=== PATIENT | female | born 1950 | race Two or more races ===

== ENCOUNTER 2019-11-26 20:10 | Inpatient (IN) | payer MEDICARE, MEDICAID ==
[~2019-11-26] VITALS: Ht 165.1 cm; Wt 48.8 kg
--- NOTE | 2019-11-26 20:10 | NUR ---
ED Nurse Note: Patient brought in by ambulance [id number] from [facility], per EMS right sided focal seizure main complaint, pt was given ativan PO at [facility]. Patient alert but nonverbal, follows commands. Patient has recent stroke and was admitted to [facility] discharged on 11/24/19. Patient placed on cardiac rehabilitation specialist. No acute distress noted during assessment.
[2019-11-26 20:12] VITALS: BP 135/77
--- NOTE | 2019-11-26 20:12 | NUR ---
ED Nurse Note: Patient has left upper arm PICC line
--- NOTE | 2019-11-26 20:20 | NUR ---
ED Nurse Note: Patient verbally communicating in turkmen, able to understand and follow mauritian commands.
--- NOTE | 2019-11-26 20:21 | NUR ---
ED Nurse Note: Patient taken to CT in stable condition.
--- NOTE | 2019-11-26 20:47 | Emergency Room Report ---
History of Present Illness General Chief Complaint: Seizure Source: Medical Record Present Illness HPI Patient presents from nursing facility with reports of right-sided focal seizure activity Patient had recent hospitalization at [facility] Patient herself has underlying dementia and is nonverbal Patient was being evaluated by physician at the nursing facility and was found to be having tremors possible seizure and 911 was contacted There was no reports of vomiting or diarrhea patient is at baseline mental status Allergies: Coded Allergies: No Known Allergies (Unverified , 11/26/19) COVID-19 Screening Contact w/high risk pt: No Recent Travel to affected area: No Experienced COVID-19 symptoms?: No Patient History Limited by: medical condition Past Medical History: see triage record Reviewed Nursing Documentation: PMH: Agreed; PSxH: Agreed Nursing Documentation-PMH Past Medical History Deferred: Pt Cognitively Impaired Hx Cardiac Problems: Yes - CHF Hx Hypertension: Yes Hx Pacemaker: No Hx Asthma: No Hx COPD: No Hx Diabetes: Yes Hx Cancer: No Hx Gastrointestinal Problems: No Hx Dialysis: No History Of Psychiatric Problem: No Hx Neurological Problems: No Hx Cerebrovascular Accident: Yes Hx Seizures: No Review of Systems All Other Systems: limited - Other than the ones mentioned in the history of present illness all others are reviewed however they do stay limited due to the patient's mental status Physical Exam Vital Signs Date Time Temp Pulse Resp B/P (MAP) Pulse Ox O2 Delivery O2 Flow Rate FiO2 11/26/19 19:58 106 22 169/102 (124) 95 Room Air 11/26/19 20:12 98.8 Sp02 EP Interpretation: reviewed, normal General Appearance: no apparent distress Head: normocephalic, atraumatic Eyes: bilateral eye PERRL, bilateral eye EOMI ENT: EOM grossly intact Neck: supple Respiratory: lungs clear, no respiratory distress, no retraction Cardiovascular #1: regular rate, rhythm Gastrointestinal: non tender, soft Musculoskeletal: other - Patient does have what appears to be tremulous activity to the right arm however soon after arrival it does appear to have stopped Neurologic: other - Responsive Skin: no rash Lymphatic: no adenopathy Procedures Critical Care Time Critical Care Time 50 minutes for multiple re-evaluations critical presentation concern for intracranial process not including any procedural time Medical Decision Making Diagnostic Impression: Primary Impression: Focal seizure Additional Impression: Bilateral pleural effusion ER Course Multiple differentials including but not limited to seizure disorder, neurological, neurosurgical entertained Patient appears to have resolved with her tremors in the emergency room did not require any further intervention CT head does not show any acute process And patient is admitted for further inpatient care Labs Test 11/26/19 20:50 11/27/19 06:10 11/28/19 05:50 White Blood Count 6.8 K/UL (4.8-10.8) 7.3 K/UL (4.8-10.8) Red Blood Count 4.15 M/UL (4.20-5.40) 4.20 M/UL (4.20-5.40) Hemoglobin 11.9 G/DL (12.0-16.0) 12.4 G/DL (12.0-16.0) Hematocrit 37.4 % (37.0-47.0) 36.3 % (37.0-47.0) Mean Corpuscular Volume 90 FL (80-99) 86 FL (80-99) Mean Corpuscular Hemoglobin 28.6 PG (27.0-31.0) 29.4 PG (27.0-31.0) Mean Corpuscular Hemoglobin Concent 31.7 G/DL (32.0-36.0) 34.1 G/DL (32.0-36.0) Red Cell Distribution Width 16.1 % (11.6-14.8) 14.5 % (11.6-14.8) Platelet Count 178 K/UL (150-450) 175 K/UL (150-450) Mean Platelet Volume 7.1 FL (6.5-10.1) 6.3 FL (6.5-10.1) Neutrophils (%) (Auto) 79.0 % (45.0-75.0) 61.7 % (45.0-75.0) Lymphocytes (%) (Auto) 10.8 % (20.0-45.0) 25.3 % (20.0-45.0) Monocytes (%) (Auto) 7.0 % (1.0-10.0) 10.9 % (1.0-10.0) Eosinophils (%) (Auto) 1.2 % (0.0-3.0) 0.9 % (0.0-3.0) Basophils (%) (Auto) 2.0 % (0.0-2.0) 1.2 % (0.0-2.0) Prothrombin Time 13.3 SEC (9.30-11.50) Prothromb Time International Ratio 1.3 (0.9-1.1) Activated Partial Thromboplast Time 25 SEC (23-33) Urine Color Yellow Urine Appearance Clear Urine pH 6.5 (4.5-8.0) Urine Specific Mcbrides 1.020 (1.005-1.035) Urine Protein 4+ (NEGATIVE) Urine Glucose (UA) 2+ (NEGATIVE) Urine Ketones 1+ (NEGATIVE) Urine Blood 5+ (NEGATIVE) Urine Nitrite Negative (NEGATIVE) Urine Bilirubin Negative (NEGATIVE) Urine Urobilinogen Normal MG/DL (0.0-1.0) Urine Leukocyte Esterase 1+ (NEGATIVE) Urine RBC 5-10 /HPF (0 - 2) Urine WBC 2-4 /HPF (0 - 2) Urine Squamous Epithelial Cells Few /LPF (NONE/OCC) Urine Bacteria Few /HPF (NONE) Sodium Level 136 MMOL/L (136-145) 139 MMOL/L (136-145) 139 MMOL/L (136-145) Potassium Level 4.9 MMOL/L (3.5-5.1) 4.5 MMOL/L (3.5-5.1) 4.1 MMOL/L (3.5-5.1) Chloride Level 101 MMOL/L (98-107) 104 MMOL/L (98-107) 103 MMOL/L (98-107) Carbon Dioxide Level 31 MMOL/L (21-32) 26 MMOL/L (21-32) 29 MMOL/L (21-32) Anion Gap 4 mmol/L (5-15) 9 mmol/L (5-15) 7 mmol/L (5-15) Blood Urea Nitrogen 22 mg/dL (7-18) 19 mg/dL (7-18) 14 mg/dL (7-18) Creatinine 1.0 MG/DL (0.55-1.30) 0.9 MG/DL (0.55-1.30) 0.9 MG/DL (0.55-1.30) Estimat Glomerular Filtration Rate 55.0 mL/min (>60) > 60 mL/min (>60) > 60 mL/min (>60) Glucose Level 221 MG/DL (74-106) 213 MG/DL (74-106) 206 MG/DL (74-106) Calcium Level 8.9 MG/DL (8.5-10.1) 8.8 MG/DL (8.5-10.1) 8.7 MG/DL (8.5-10.1) Total Bilirubin 0.3 MG/DL (0.2-1.0) 0.4 MG/DL (0.2-1.0) Aspartate Amino Transf (AST/SGOT) 37 U/L (15-37) 32 U/L (15-37) Alanine Aminotransferase (ALT/SGPT) 22 U/L (12-78) 21 U/L (12-78) Alkaline Phosphatase 163 U/L (46-116) 144 U/L (46-116) Total Creatine Kinase 49 U/L (26-308) Troponin I 0.013 ng/mL (0.000-0.056) Total Protein 6.3 G/DL (6.4-8.2) 6.0 G/DL (6.4-8.2) Albumin 2.3 G/DL (3.4-5.0) 2.1 G/DL (3.4-5.0) Globulin 4.0 g/dL 3.9 g/dL Albumin/Globulin Ratio 0.6 (1.0-2.7) 0.5 (1.0-2.7) Lipase 249 U/L (73-393) EKG Diagnostic Results Rate: normal Rhythm: other - atrial paced ST Segments: no acute changes Rhythm Strip Diag. Results EP Interpretation: yes Rate: 77 Rhythm: no PVC's, no ectopy, other - atrial paced Chest X-Ray Diagnostic Results Chest X-Ray Diagnostic Results : Chest X-Ray Ordered: Yes # of Views/Limited/Complete: 1 View Indication: Chest Pain EP Interpretation: Yes Interpretation: no pneumothorax, other - Bilateral large pleural effusions pulmonary congestion cardiomegaly Impression: Other - Large bilateral pleural effusions Electronically Signed by: Lucrecia Bobo DO CT/MRI/US Diagnostic Results CT/MRI/US Diagnostic Results : Impression CT headIMPRESSION: 1. No acute intracranial abnormality. 2. Left frontoparietal encephalomalacia. 3. Otherwise unremarkable study. Last Vital Signs Date Time Temp Pulse Resp B/P (MAP) Pulse Ox O2 Delivery O2 Flow Rate FiO2 3/28/20 20:13 96 24 Room Air 11/26/19 20:12 98.8 135/77 97 Status: improved Disposition: ADMITTED INPATIENT Condition: Serious Lucrecia Bobo DO Nov 26, 2019 20:47
--- NOTE | 2019-11-26 20:57 | Diagnostic Imaging Report ---
EXAM: CT Head Without Intravenous Contrast CLINICAL HISTORY: SZ TECHNIQUE: Axial computed tomography images of the head/brain without intravenous contrast. CTDI is 53 mGy and DLP is 992 mGy-cm. One or more of the following dose reduction techniques were used: automated exposure control, adjustment of the mA and/or kV according to patient size, use of iterative reconstruction technique. COMPARISON: No relevant prior studies available. FINDINGS: Brain: Left frontoparietal encephalomalacia. Cerebrovascular ASVD. No hemorrhage. No significant white matter disease. Ventricles: Unremarkable. No ventriculomegaly. Bones/joints: Unremarkable. No acute fracture. Soft tissues: Unremarkable. Sinuses: Unremarkable as visualized. No acute sinusitis. Mastoid air cells: Unremarkable as visualized. No mastoid effusion. IMPRESSION: 1. No acute intracranial abnormality. 2. Left frontoparietal encephalomalacia. 3. Otherwise unremarkable study.
--- NOTE | 2019-11-26 21:01 | NUR ---
ED Nurse Note: blood and urine sent to lab
--- NOTE | 2019-11-26 21:01 | NUR ---
ED Nurse Note: Patient has left upper chest pacemaker, unknown kind. Addendum: 11/26/19 at 2136 by JOSE ROBERTO ED Nurse Note: Patient has left upper chest ICD pacemaker
--- NOTE | 2019-11-26 21:04 | NUR ---
ED Nurse Note: ERMD at bedside, per ERMD ok to hold Versed d/t patient stable.
[2019-11-26] MEDS ORDERED: ELIQUIS5 MG PO (21:10)
[2019-11-26] MEDS ORDERED: DIOVAN80 MG ORAL (21:10)
[2019-11-26] MEDS ORDERED: FOLIC ACID1 MG ORAL (21:10)
[2019-11-26] MEDS ORDERED: METOPROLOL SUCC50 MG ORAL (21:10)
[2019-11-26] MEDS ORDERED: DOCUSATE SODIU100 MG ORAL (21:10)
[2019-11-26] MEDS ORDERED: LIPITOR80 MG ORAL (21:10)
--- NOTE | 2019-11-26 21:10 | Diagnostic Imaging Report ---
EXAM: XR Chest, 1 View CLINICAL HISTORY: CP TECHNIQUE: Frontal view of the chest. COMPARISON: No relevant prior studies available. FINDINGS: Lungs: Retrocardiac atelectasis with or without consolidation. Linear interstitial prominence, which could represent interstitial pulmonary edema. Low lung volumes with bronchovascular crowding. Pleural space: Bilateral small-moderate pleural effusions with passive atelectasis, correlate to exclude consolidation. No pneumothorax. Heart: Unremarkable. No cardiomegaly. Mediastinum: Unremarkable. Bones/joints: Unremarkable. Tubes, lines and devices: Left chest ICD. IMPRESSION: 1. Bilateral small-moderate pleural effusions with passive atelectasis, correlate to exclude consolidation. 2. Retrocardiac atelectasis with or without consolidation. 3. Linear interstitial prominence, which could represent interstitial pulmonary edema or could be due to low lung volumes. 4. Left chest ICD.
--- NOTE | 2019-11-26 21:11 | NUR ---
ED Nurse Note: Per EMS, facility informed them patient is on ESBL contact isolation precautions. Per medical record from [facility], ESBL urinary tract infection.
[2019-11-26 21:14] LABS: APPEARANCE,URINE CLEAR; BILIRUBIN, URINE NEGATIVE (NEGATIVE); GLUCOSE, URINE (UA) 2+ (NEGATIVE); KETONES,URINE 1+ (NEGATIVE); LEUKOCYTE ESTERASE ,URINE 1+ (NEGATIVE); NITRITE,URINE NEGATIVE (NEGATIVE); PH,URINE 6.5 (4.5-8.0); PROTEIN,URINE 4+ (NEGATIVE); UROBILINOGEN,URINE NORMAL MG/DL (0.0-1.0)
[2019-11-26 21:16] LABS: COLOR,URINE YELLOW
[2019-11-26 21:22] LABS: EOSINOPHILS % (AUTO) 1.2 % (0.0-3.0); HEMATOCRIT 37.4 % (37.0-47.0); HEMOGLOBIN 11.9 G/DL (12.0-16.0); LYMPHOCYTES % (AUTO) 10.8 % (20.0-45.0); MEAN CORPUSCULAR VOLUME 90 FL (80-99); PLATELET COUNT 178 K/UL (150-450); RED BLOOD COUNT 4.15 M/UL (4.20-5.40); RED CELL DISTRIBUTION WIDTH 16.1 % (11.6-14.8); WHITE BLOOD COUNT 6.8 K/UL (4.8-10.8)
[2019-11-26 21:24] LABS: ANION GAP 4 mmol/L (5-15); BLOOD UREA NITROGEN 22 mg/dL (7-18); CALCIUM 8.9 MG/DL (8.5-10.1); CARBON DIOXIDE 31 MMOL/L (21-32); CHLORIDE 101 MMOL/L (98-107); POTASSIUM 4.9 MMOL/L (3.5-5.1); SODIUM 136 MMOL/L (136-145)
[2019-11-26 21:29] LABS: ALANINE AMINOTRANSFERASE 22 U/L (12-78); ALBUMIN 2.3 G/DL (3.4-5.0); ALBUMIN/GLOBULIN RATIO 0.6 (1.0-2.7); ALKALINE PHOSPHATASE 163 U/L (46-116); ASPARTATE AMINO TRANSFERASE 37 U/L (15-37); BILIRUBIN,TOTAL 0.3 MG/DL (0.2-1.0); CREATINE KINASE 49 U/L (26-308)
[2019-11-26] MEDS ORDERED: cefTRIAXone 1 GM in NS 55 ML IVPB ONE (21:30)
[2019-11-26 21:49] LABS: INR 1.3 (0.9-1.1)
--- NOTE | 2019-11-26 22:45 | NUR ---
ED Nurse Note: Report given to DAVID Cosme in med surg.
--- NOTE | 2019-11-26 22:49 | NUR ---
ED Nurse Note: MRSA and VRE swabs collected and sent to lab.
--- NOTE | 2019-11-26 23:35 | NUR ---
TRANSFER TO FLOOR: Patient transferred to med surg as ordered, per ERMD. Report given to DAVID Cosme. Patient transported via gurney accompanied by mechanical design technician in stable condition.
--- NOTE | 2019-11-26 23:45 | NUR ---
NURSE NOTES: Pt. received from DAVID Espino. Pt. AAOx2, on room air, no complaints of pain, no indications of shortness of breath. VS stable, belongings checked and verified, pt. oriented to room. IV right hand 18g intact and flushing well, saline locked. Pt. noted to have JÚNIOR PICC, Dr. Bentley aware. Left upperchest ICD noted. Skin is intact, dryness on bilateral feet. Pt. high fall risk, dressed with yellow gown, yellow socks, fall precaution sign placed on door, and pt. educated to use call light for assistance. Bed is low and locked, side rails x3 up, side rails padded, suctioning established at the bedside, bed alarm is active, and call light is in reach. Will continue to monitor and call MD for admission orders.
--- NOTE | 2019-11-27 00:05 | NUR ---
NURSE NOTES: Orders received from Dr. Bentley, will implement plan of care and continue to monitor.
[2019-11-27] MEDS ORDERED: LORazepam Inj 2mg/ml 1ml IV PRN (00:15)
--- NOTE | 2019-11-27 02:00 | NUR ---
NURSE NOTES: Pt. observed attempting to get out of bed to use restroom. Pt. assessed too weak to ambulate safely at this time. Bed wilson provided, pt. able to assist with positioning. Void x1. Bed low and locked, side rails x3 up and upper rails are padded, bed alarm is on, and call light remains in reach. Will continue to monitor.
[2019-11-27 04:00] VITALS: BP 132/80
[2019-11-27 07:19] LABS: ALANINE AMINOTRANSFERASE 21 U/L (12-78); ALBUMIN 2.1 G/DL (3.4-5.0); ALBUMIN/GLOBULIN RATIO 0.5 (1.0-2.7); ALKALINE PHOSPHATASE 144 U/L (46-116); ANION GAP 9 mmol/L (5-15); ASPARTATE AMINO TRANSFERASE 32 U/L (15-37); BILIRUBIN,TOTAL 0.4 MG/DL (0.2-1.0); BLOOD UREA NITROGEN 19 mg/dL (7-18); CALCIUM 8.8 MG/DL (8.5-10.1); CARBON DIOXIDE 26 MMOL/L (21-32); CHLORIDE 104 MMOL/L (98-107); CREATININE 0.9 MG/DL (0.55-1.30); POTASSIUM 4.5 MMOL/L (3.5-5.1); SODIUM 139 MMOL/L (136-145)
--- NOTE | 2019-11-27 07:20 | NUR ---
NURSE NOTES: IV inserted R wrist 22g.
[2019-11-27 07:27] LABS: BASOPHILS % (AUTO) 1.2 % (0.0-2.0); EOSINOPHILS % (AUTO) 0.9 % (0.0-3.0); HEMATOCRIT 36.3 % (37.0-47.0); HEMOGLOBIN 12.4 G/DL (12.0-16.0); LYMPHOCYTES % (AUTO) 25.3 % (20.0-45.0); MEAN CORPUSCULAR VOLUME 86 FL (80-99); MONOCYTES % (AUTO) 10.9 % (1.0-10.0); NEUTROPHILS % (AUTO) 61.7 % (45.0-75.0); PLATELET COUNT 175 K/UL (150-450); RED CELL DISTRIBUTION WIDTH 14.5 % (11.6-14.8); WHITE BLOOD COUNT 7.3 K/UL (4.8-10.8)
--- NOTE | 2019-11-27 07:36 | NUR ---
HAND-OFF: Report given to DAVID Boyle.
--- NOTE | 2019-11-27 07:37 | NUR ---
NURSE NOTES: Received patient in bed, awake, verbally responsive. Denies pain or discomfort. Seizure precaution,side rails padded. IV is intact, no s/s of infiltration. Bed is in lowest position and locked. Bed alarm is on, no episodes of trying to get out of bed @ this time. No seizure activity. Call light and personnel items within reach. Will continue plan of care.
[2019-11-27 08:00] VITALS: BP 129/75
[2019-11-27 12:00] VITALS: BP 123/71
[2019-11-27 16:00] VITALS: BP 131/72
--- NOTE | 2019-11-27 16:30 | Consultation ---
DATE OF CONSULTATION: 11/27/2019 PULMONARY CONSULTATION CONSULTING PHYSICIAN: Bernabe Mane M.D. REFERRING PHYSICIAN: Lucrecia Bentley M.D. HISTORY OF PRESENT ILLNESS: This is a [facility] resident who was admitted to hospital with seizure activity. The patient was admitted to outside hospital. No history is known. She has dementia and she is nonverbal. The patient was noted to have seizures and was transferred to this hospital where she is admitted. At this time, the patient is unable to provide any further history. Most of the history obtained from review of patient's records. REVIEW OF SYSTEMS: Unreliable. PAST MEDICAL HISTORY: Dementia, possible seizure disorder. SOCIAL HISTORY: [facility] resident. CURRENT MEDICATIONS: Include Ativan and Rocephin. PHYSICAL EXAMINATION: VITAL SIGNS: Blood pressure 120/70, heart rate 84, respirations 18, afebrile, O2 saturation 97% on room air. GENERAL: Reveals a 69-year-old female. She is nonverbal. HEENT: Unremarkable. LUNGS: Clear breath sounds bilaterally. HEART: Normal heart sounds. ABDOMEN: Soft. EXTREMITIES: Trace edema. LABORATORY DATA: Lab testing shows normal CBC and BMP with a glucose of 213. IMAGING STUDIES: X-ray of chest is done, which shows small bilateral pleural effusions and left-sided ICD. Head CT is negative for any acute pathology. IMPRESSION: 1. Suspect underlying CHF. 2. ICD. 3. Pleural effusion. 4. Questionable seizure disorder. DISCUSSION: Admit to the hospital. I do not see antibiotics. We will follow as primer inspector. The patient will benefit from a low-dose diuresis. We will initiate. We will follow carefully. Bernabe Mane M.D. DR: JOSÉ MIGUEL JOB#: [id number] CC:
--- NOTE | 2019-11-27 18:00 | NUR ---
NURSE NOTES: Patient had no seizure episodes today, denied pain or discomfort. urinate with sufficient amount. Proper skin care done. tolerated with food without difficulties.
--- NOTE | 2019-11-27 19:08 | NUR ---
HAND-OFF: Report given to Darling and endorsed plan of care.
--- NOTE | 2019-11-27 19:15 | Consultation ---
DATE OF CONSULTATION: 11/27/2019 INFECTIOUS DISEASE CONSULTATION CONSULTING PHYSICIAN: Robbie Samson M.D. PRIMARY ATTENDING PHYSICIAN: Lucrecia Bentley M.D. REASON FOR CONSULTATION: Pneumonia, pleural effusion. HISTORY OF PRESENT ILLNESS: This is a 69-year-old female, admitted on 11/26/2019 from a assisted facility because of localized seizure activity in right side of the body. The patient had history of CVA before and was hemiplegic in the right side. She had no fever. No chills. No other systemic symptoms. PAST MEDICAL HISTORY: Significant for diabetes mellitus, hypertension, history of pacemaker placement, systolic CHF, old CVA, and right hemiplegia. ALLERGIES: No known drug allergies. MEDICATIONS: Lasix, Tylenol, lorazepam, get a dose of ceftriaxone in the ER, get midazolam in the ER. SOCIAL HISTORY: [facility] resident. She was recently transferred from [facility] to the [facility]. She has ESBL E. coli UTI in [facility]. She is single. REVIEW OF SYSTEMS: No fever. No chills. No coughing. No pain. PHYSICAL EXAMINATION: VITAL SIGNS: Temperature 97.2, pulse 85, blood pressure 123/71. GENERAL APPEARANCE: No acute distress. HEAD AND NECK: [place] conjunctiva. HEART: Normal rate. LUNGS: Clear. ABDOMEN: Soft, nontender. EXTREMITIES: Has no edema. NEUROLOGIC: Awake, responsive, had right-sided hemiplegia. No seizure activity at the time of exam. LABORATORY DATA: Sodium 139, potassium 4.5, chloride 104, bicarb 26, BUN 19, creatinine 0.9. Glucose is 213. Albumin is 2.1. WBC 7.3, hemoglobin 12.4, hematocrit 36.3, platelets 171,000. UA showed rbc's of 5 to 10, leukocyte esterase 1+. Chest x-ray, bilateral moderate pleural effusion with passive atelectasis, cannot rule out consolidation, retrocardiac atelectasis. CT scan of the head showed left frontal, parietal encephalomalacia. No acute in chronic intracardiac abnormality. IMPRESSION: Pleural effusion and atelectasis. I doubt the patient has pneumonia. The patient has no systemic symptoms. She has diabetes mellitus with hyperglycemia, systolic congestive heart failure, history of CVA with right hemiplegia, hypertension. RECOMMENDATION: Observe off antibiotic. At the end of my exam, I thank Dr. Bentley for involving me in the care of this patient. Robbie Samson M.D. DR: FRANCIA JOB#: [id number] CC: MAGGY
--- NOTE | 2019-11-27 19:46 | NUR ---
NURSE NOTES: Received pt from DAVID Boyle. AAO x 2, on room air. Dominican speaking. IV site intact and pt has mid line from SNF. Fall, aspiration, sz precaution maintained. Side rails padded, suction set up at bedside. Bed locked, lowest position, side rails up, call light within reach. Will continue monitor.
[2019-11-27 20:00] VITALS: BP 131/71
[2019-11-27 23:29] VITALS: BP 135/78
--- NOTE | 2019-11-27 23:45 | History and Physical Report ---
DATE OF ADMISSION: 11/26/2019 HISTORY OF PRESENT ILLNESS: The patient is admitted for new-onset focal seizures on the seizure activity. The patient also has had pleural effusion on the chest x-ray, admitted for those reasons, and for respiratory insufficiency. The patient basically presented from a nursing facility with sided focal seizure activity. The patient has underlying dementia and we cannot get any history from the patient. The patient was noted to have tremors and came in for new-onset seizures. Again, I cannot get any history from the patient. Has been admitted for that as well as for pleural effusion on the chest x-ray. PAST MEDICAL HISTORY: Dementia, history of CHF, hypertension, diabetes as well as history of GERD, as well as history of CVA. PAST SURGICAL HISTORY: None known. The patient also came in with PICC line. FAMILY HISTORY: Unable to obtain. SOCIAL HISTORY: Unable to obtain. REVIEW OF SYSTEMS: Unable to obtain. The patient is a poor historian. MEDICATIONS: Eliquis 5 mg daily, Lipitor 80 mg daily, Colace 100 mg twice a day, folic acid 1 daily, metoprolol 50 mg daily, and 80 mg daily. PHYSICAL EXAMINATION: VITAL SIGNS: Temperature is 97.3, pulse 83, and blood pressure 129/75. HEENT: PERRLA. NECK: Supple. CHEST: Clear to auscultation. CARDIOVASCULAR: Regular rate and rhythm. ABDOMEN: Soft, nontender. No organomegaly. EXTREMITIES: No edema. NEUROLOGIC: She does not follow neurological exam. Has a PICC line. LABORATORY DATA: WBC of 6.8, hemoglobin 11.9, platelets 178,000. Sodium 136, potassium 4.9, BUN of 23, creatinine 1, glucose of 221. Troponin 0.013. ASSESSMENT AND PLAN: Focal new-onset seizure. Pleural effusion on the chest x-ray. I have asked Dr. Bernabe Mane, Dr. Robbie Samson, Dr. Vazquez to see the patient for the management of the seizure as well as for the management of the pleural effusion and to rule out pneumonia. Antibiotics if any per Dr. Robbie Samson. Ali Hadadz, M.D. DR: ISAURA JOB#: [id number] CC:
[2019-11-28 04:00] VITALS: BP 135/78
[2019-11-28 06:44] LABS: ANION GAP 7 mmol/L (5-15); BLOOD UREA NITROGEN 14 mg/dL (7-18); CALCIUM 8.7 MG/DL (8.5-10.1); CARBON DIOXIDE 29 MMOL/L (21-32); CHLORIDE 103 MMOL/L (98-107); CREATININE 0.9 MG/DL (0.55-1.30); POTASSIUM 4.1 MMOL/L (3.5-5.1); SODIUM 139 MMOL/L (136-145)
--- NOTE | 2019-11-28 07:28 | NUR ---
HAND-OFF: Report given to DAVID Edmonds.
--- NOTE | 2019-11-28 08:10 | NUR ---
NURSE NOTES: Received patient on bed, awake. IV site intact and patent. Left midline access dressing needs to be changed. Bed in low and locked position, call light in reach. No signs of respiratory distress or pain. Room board updated, will continue to monitor.
[2019-11-28 08:22] VITALS: BP 113/78
--- NOTE | 2019-11-28 10:00 | NUR ---
NURSE NOTES: Changed midline dressing on left upper arm.
--- NOTE | 2019-11-28 11:15 | Pulmonology Progress Note ---
Assessment/Plan Assessment/Plan IMPRESSION: 1. Suspect underlying CHF. 2. ICD. 3. Pleural effusion. 4. Questionable seizure disorder. DISCUSSION: I will follow as it project lead. The patient will benefit from a low-dose diuresis. Bernabe Mane M.D. Subjective Interval Events: None new reported Constitutional: Reports: no symptoms HEENT: Repors: no symptoms Respiratory: Reports: no symptoms Cardiovascular: Reports: no symptoms Allergies: Coded Allergies: No Known Allergies (Unverified , 11/26/19) Objective Last 24 Hour Vital Signs Date Time Temp Pulse Resp B/P (MAP) Pulse Ox O2 Delivery O2 Flow Rate FiO2 11/28/19 09:00 Room Air 11/28/19 08:22 98.2 83 16 113/78 (90) 98 11/28/19 04:00 98.0 80 19 135/78 (97) 95 11/27/19 23:29 97.8 87 19 135/78 (97) 98 11/27/19 21:00 Room Air 11/27/19 20:00 98.5 87 19 131/71 (91) 97 11/27/19 16:00 98.2 87 18 131/72 (91) 96 11/27/19 12:00 97.2 85 18 123/71 (88) 97 Intake and Output 11/27/19 11/28/19 19:00 07:00 Intake Total 840 ml 360 ml Balance 840 ml 360 ml Intake Oral 840 ml 360 ml # Voids 3 3 General Appearance: no acute distress HEENT: normocephalic Respiratory/Chest: chest wall non-tender Cardiovascular: normal peripheral pulses Abdomen: normal bowel sounds Microbiology Date/Time Source Procedure Growth Status 11/26/19 22:40 Rectum Received Laboratory Tests 11/28/19 05:50: Sodium Level 139, Potassium Level 4.1, Chloride Level 103, Carbon Dioxide Level 29, Anion Gap 7, Blood Urea Nitrogen 14, Creatinine 0.9, Estimat Glomerular Filtration Rate > 60, Glucose Level 206H, Calcium Level 8.7 Current Medications Medications (Trade) Dose Ordered Sig/Abbey Route PRN Reason Start Time Stop Time Status Last Admin Dose Admin Acetaminophen (Tylenol) 650 mg Q4H PRN ORAL Mild Pain/Temp > 100.5 11/27/19 00:15 12/27/19 00:14 Furosemide (Lasix) 20 mg EVERY 12 HOURS ORAL 11/27/19 12:15 12/27/19 12:14 11/28/19 09:35 Lorazepam (Ativan 2mg/ml 1ml) 1 mg Q2H PRN IV Seizure activity only 11/27/19 00:15 12/04/19 00:14 Bernabe Mane MD Nov 28, 2019 11:15
--- NOTE | 2019-11-28 11:53 | Infectious Diseases Prog Note ---
Assessment/Plan Assessment/Plan IMPRESSION: Pleural effusion and atelectasis. I doubt the patient has pneumonia. Diabetes mellitus with hyperglycemia, systolic congestive heart failure, history of CVA Hypertension. RECOMMENDATION: Observe off antibiotic. Subjective ROS Limited/Unobtainable: No Constitutional: Reports: no symptoms Cardiovascular: Reports: no symptoms Gastrointestinal/Abdominal: Reports: no symptoms Genitourinary: Reports: no symptoms Allergies: Coded Allergies: No Known Allergies (Unverified , 11/26/19) Objective Vital Signs Last 24 Hour Vital Signs Date Time Temp Pulse Resp B/P (MAP) Pulse Ox O2 Delivery O2 Flow Rate FiO2 11/28/19 09:00 Room Air 11/28/19 08:22 98.2 83 16 113/78 (90) 98 11/28/19 04:00 98.0 80 19 135/78 (97) 95 11/27/19 23:29 97.8 87 19 135/78 (97) 98 11/27/19 21:00 Room Air 11/27/19 20:00 98.5 87 19 131/71 (91) 97 11/27/19 16:00 98.2 87 18 131/72 (91) 96 11/27/19 12:00 97.2 85 18 123/71 (88) 97 Height (Feet): 5 Height (Inches): 5.00 Weight (Pounds): 110 General Appearance: no acute distress HEENT: mucous membranes moist Respiratory/Chest: lungs clear Cardiovascular: normal rate Abdomen: soft, non tender Extremities: no edema Neurologic/Psychiatric: alert, oriented x 3, responsive Microbiology Date/Time Source Procedure Growth Status 11/26/19 22:40 Rectum Received Laboratory Tests Test 11/28/19 05:50 Sodium Level 139 MMOL/L (136-145) Potassium Level 4.1 MMOL/L (3.5-5.1) Chloride Level 103 MMOL/L (98-107) Carbon Dioxide Level 29 MMOL/L (21-32) Anion Gap 7 mmol/L (5-15) Blood Urea Nitrogen 14 mg/dL (7-18) Creatinine 0.9 MG/DL (0.55-1.30) Estimat Glomerular Filtration Rate > 60 mL/min (>60) Glucose Level 206 MG/DL (74-106) H Calcium Level 8.7 MG/DL (8.5-10.1) Current Medications Medications (Trade) Dose Ordered Sig/Abbey Route PRN Reason Start Time Stop Time Status Last Admin Dose Admin Acetaminophen (Tylenol) 650 mg Q4H PRN ORAL Mild Pain/Temp > 100.5 11/27/19 00:15 12/27/19 00:14 Furosemide (Lasix) 20 mg EVERY 12 HOURS ORAL 11/27/19 12:15 12/27/19 12:14 11/28/19 09:35 Lorazepam (Ativan 2mg/ml 1ml) 1 mg Q2H PRN IV Seizure activity only 11/27/19 00:15 12/04/19 00:14 Robbie Samson MD Nov 28, 2019 11:53
[2019-11-28 12:11] VITALS: BP 115/80
--- NOTE | 2019-11-28 14:12 | NUR ---
NOTES: REFERRED FOR SWALLOWING EVALUATION BY DR FERGUSON, SEE FULL REPORT IN CARE ACTIVITY SECTION. DYSPHAGIA RISK FACTORS FOR THIS 69 Y.O. ADVANCED AGED AND CYMRAES-SPEAKING ([facility]) FEMALE: ACUTE ISSUES: NEW ONSET FOCAL SEIZURE, CXR BILATERAL LARGE PLEURAL EFFUSIONS, PULMONARY CONGESTION, RETROCARDIAC ATELECTASIS WITH OR W/O CONSOLIDATION, CARDIOMEGALY, RESP RATE 16-19 SP02 95-98 ON ROOM AIR, RENAL INSUFFICIENCY RELEVANT MEDS: ATIVAN H/O OROPHARYNGEAL DYSPHAGIA, DEMENTIA, CVA RSW BUT CAN USE BOTH HANDS FOR SELF-FEEDING.CT HEAD 11/26/19 LEFTFRONTOPARIETAL ENCEPHALOMALACIA),DM, HTN, RESP FAILURE. PLOF: NO POLST REGARDING TUBE FEEDINGS,? DIET AT SNF. PATIENT TRANSFERRED FROM [facility]. CURRENTLY, SHE IS ON A PUREED AND THIN LIQUID DIET WITH GOOD INTAKE. PER JASMIN HERNANDEZ, SHE IS ABLE TO TAKE SMALL PILL WITH WATER W/O OVERT ASPIRATION. PER YONATAN MARROQUIN, PATIENT TOLERATED HER MEAL W/O OVERT ASPIRATION. ALERT AND ABLE TO CONVERSE IN CYMRAES. SHE IS ORIENTED TO CITY AND YEAR. HE HAS FULL UPPER DENTURES AND IS MISSING HER LOWER PARTIAL DENTURES (ONLY HAS ANTERIOR DENTITION ON THE BOTTOM, NO MOLARS) INITIAL IMPRESSIONS: MILD OROPHARYNGEAL DYSPHAGIA WITH MILD INCREASE TRANSIT TIMES GROSSLY FUNCTIONAL OROMOTOR SKILLS GIVEN THIN LIQUIDS VIA STRAW SEQUENTIAL SIPS, NO OVERT ASPIRATION BUT ONLY TAKING ONE SIP AT A TIME. GIVEN PUREED TSP, TENDS TO CHEW A FEW SECONDS, SWALLOWS W/O ORAL RESIDUE AND OVERT ASPIRATION. GIVEN MASTICATED SOLID 1/2 CRACKER, CHEWS 10 SECONDS, SWALLOWS W/O ORAL RESIDUE NOR OVERT ASPIRATION. HAS SILENT ASPIRATION RISK DUE CVA HX AND (CURRENTLY LUNGS HAVE RETROCARDIAC ATELECTASIS WITH OR W/O CONSOLIDATION, BILATERAL PLEURAL EFFUSIONS, AND PULMONARY CONGESTION) GOOD INTAKE 80-100% RECOMMENDATIONS: UPGRADE TO [facility] SOFT FINELY CHOPPED AND THIN LIQUIDS WITH POSTED ASPIRATION PRECAUTIONS AND SUPERVISION. DIET TYPE PER RD CONSIDER MOD BARIUM SWALLOW STUDY IP OR OP IF DC SKILLED DYSPHAGIA MANAGEMENT AND TX AND COG-COM EVAL/TX FOR HIGHER LEVEL COG/LANG SKILLS IF INDICATED EDUCATED/TRAINED STAFF (DAVID CASTELLANOS AND LOPEZ TAM) IN POSTED PRECAUTIONS.
--- NOTE | 2019-11-28 15:37 | NUR ---
CASE MANAGEMENT:INITIAL REVIEW CASE MANAGEMENT:INITIAL REVIEW 69 YR OLD FEMALE BIBA FROM [facility]; SEIZURE SI;NEW ONSET FOCAL SEIZURE. BILATERAL PLEURAL EFFUSION. 98.8 106 24 169/102 95% ON RA BUN 22 BG 221 ALK PHOS [address] ~ 1. No acute intracranial abnormality. 2. Left frontoparietal encephalomalacia. CXR ~ 1. Bilateral small-moderate pleural effusions with passive atelectasis, correlate to exclude consolidation. 2. Retrocardiac atelectasis with or without consolidation. 3. Linear interstitial prominence, which could represent interstitial pulmonary edema or could be due to low lung volumes. 4. Left chest ICD. IS;MIDAZOLAM IV ONCE LASIX IV ONCE ROCEPHIN IV ONCE ADMITTED TO MED SURG MED SURG STATUS DCP;FROM [facility] CASE MANAGEMENT:REVIEW 11/28/2019 SI;PLEURAL EFFUSION. CHF. RESPIRATORY INSUFFICIENCY. DM. 98.5 87 19 135/78 95% ON RA BG 206 IS;LASIX PO Q12 HRS LORAZEPAM IV Q2 HRS PRN MED SURG STATUS DCP; FROM [facility]
[2019-11-28 16:00] VITALS: BP 114/72
--- NOTE | 2019-11-28 19:02 | NUR ---
HAND-OFF: Report given to DAVID Piedra.
--- NOTE | 2019-11-28 19:51 | NUR ---
NURSE NOTES: Received patient on bed, asleep. IV site intact and patent. Left midline dressing changed today by AM nurse. Bed in low and locked position, call light in reach. No signs of respiratory distress or pain.
--- NOTE | 2019-11-28 20:28 | General Progress Note ---
Assessment/Plan Problem List: (1) Focal seizure ICD Codes: R56.9 - Unspecified convulsions SNOMED: 98246524 (2) Bilateral pleural effusion ICD Codes: J90 - Pleural effusion, not elsewhere classified SNOMED: 829242272 Status: progressing Assessment/Plan: seizure new onset await neurology consult input from dr zimmerman(i already consulted him) chf resp insuff r/o pna need diuresis Subjective ROS Limited/Unobtainable: Yes Allergies: Coded Allergies: No Known Allergies (Unverified , 11/26/19) Objective Last 24 Hour Vital Signs Date Time Temp Pulse Resp B/P (MAP) Pulse Ox O2 Delivery O2 Flow Rate FiO2 11/28/19 16:00 97.9 84 19 114/72 (86) 97 11/28/19 12:11 98.0 80 17 115/80 (92) 99 11/28/19 09:00 Room Air 11/28/19 08:22 98.2 83 16 113/78 (90) 98 11/28/19 04:00 98.0 80 19 135/78 (97) 95 11/27/19 23:29 97.8 87 19 135/78 (97) 98 11/27/19 21:00 Room Air Intake and Output 11/27/19 11/28/19 19:00 07:00 Intake Total 840 ml 360 ml Balance 840 ml 360 ml Intake Oral 840 ml 360 ml # Voids 3 3 Laboratory Tests 11/28/19 05:50: Sodium Level 139, Potassium Level 4.1, Chloride Level 103, Carbon Dioxide Level 29, Anion Gap 7, Blood Urea Nitrogen 14, Creatinine 0.9, Estimat Glomerular Filtration Rate > 60, Glucose Level 206H, Calcium Level 8.7 Height (Feet): 5 Height (Inches): 5.00 Weight (Pounds): 110 Lucrecia Bentley MD Nov 28, 2019 20:28
[2019-11-28 20:32] VITALS: BP 144/92
[2019-11-29] VITALS: BP 130/80
[2019-11-29 04:00] VITALS: BP 136/80
--- NOTE | 2019-11-29 07:11 | NUR ---
HAND-OFF: Report given to DAVID Lopes.
[2019-11-29 08:00] VITALS: BP 123/78
--- NOTE | 2019-11-29 10:30 | Pulmonology Progress Note ---
Assessment/Plan Assessment/Plan IMPRESSION: 1. Suspect underlying CHF. 2. ICD. 3. Pleural effusion. 4. Questionable seizure disorder. DISCUSSION: I will follow as resource teacher. The patient will benefit from a low-dose diuresis. Bernabe Mane M.D. Subjective Interval Events: none new Constitutional: Reports: no symptoms HEENT: Repors: no symptoms Respiratory: Reports: no symptoms Cardiovascular: Reports: no symptoms Gastrointestinal/Abdominal: Reports: no symptoms Allergies: Coded Allergies: No Known Allergies (Unverified , 11/26/19) Objective Last 24 Hour Vital Signs Date Time Temp Pulse Resp B/P (MAP) Pulse Ox O2 Delivery O2 Flow Rate FiO2 11/29/19 09:00 Room Air 11/29/19 08:00 97.9 82 17 123/78 (93) 98 11/29/19 04:00 98.0 99 19 136/80 (98) 95 11/29/19 00:00 97.9 97 19 130/80 (97) 95 11/28/19 20:50 Room Air 11/28/19 20:32 98.1 93 19 144/92 (109) 99 11/28/19 16:00 97.9 84 19 114/72 (86) 97 11/28/19 12:11 98.0 80 17 115/80 (92) 99 Intake and Output 11/28/19 11/29/19 19:00 07:00 # Voids 1 General Appearance: no acute distress HEENT: normocephalic Respiratory/Chest: chest wall non-tender Cardiovascular: normal peripheral pulses Abdomen: normal bowel sounds Extremities: no cyanosis Microbiology Date/Time Source Procedure Growth Status 11/26/19 22:40 Nasal Nares MRSA Culture - Final NO METHICILLIN RESISTANT STAPH AUREUS... Complete 11/26/19 22:40 Rectum - Final NO CARBAPENEM-RESISTANT ENTEROBACTERI... Complete 11/26/19 22:40 Rectum VRE Culture - Final Enterococcus Faecium - Vre Complete Laboratory Tests 11/29/19 08:10: PTT Mixing Study [Pending], APTT Patient/Control Mix [Pending], Mix PTT Incubation Time [Pending], Mix PTT Normal/Saline 1:1 Immediate [Pending], Thrombin Time Normal Plasma [Pending] Current Medications Medications (Trade) Dose Ordered Sig/Abbey Route PRN Reason Start Time Stop Time Status Last Admin Dose Admin Acetaminophen (Tylenol) 650 mg Q4H PRN ORAL Mild Pain/Temp > 100.5 11/27/19 00:15 12/27/19 00:14 Furosemide (Lasix) 20 mg EVERY 12 HOURS ORAL 11/27/19 12:15 12/27/19 12:14 11/29/19 08:06 Lorazepam (Ativan 2mg/ml 1ml) 1 mg Q2H PRN IV Seizure activity only 11/27/19 00:15 12/04/19 00:14 Bernabe Mane MD Nov 29, 2019 10:30
--- NOTE | 2019-11-29 10:43 | NUR ---
NURSE NOTES: PT AXOX3, KYRGYZ SPEAKING BUT CAN SPEAK BASIC DANISH TO COMMUNICATE NEEDS. PT STATES SHE DOESN'T UNDERSTAND WHY SHE WAS HOSPITALIZED. RN EDUCATED PT HER ADMITTING DIAGNOSIS IS NEW ONSET FOCAL SEIZURES, AND WAITING FOR DR JACKSON (NEUROLOGIST [facility]). PT DENIES STATING SHE NEVER HAD SEIZURES. DENIES PAIN OR SOB AT THIS TIME. AMBULATORY WITH STEADY GAIT. WILL CONTINUE TO MONITOR.
[2019-11-29 12:00] VITALS: BP 124/72
--- NOTE | 2019-11-29 14:01 | NUR ---
CASE MANAGEMENT:REVIEW SI;BILAT PLEURAL EFFUSION. CHF. RESPIRATORY INSUFFICIENCY. FOCAL SEIZURE. 98.0 99 19 136/80 95% ON RA NO LABS AVAILABLE IS;LASIX PO Q12 HRS ATIVAN IV Q2 HRS PRN SEIZURE MED SURG STATUS DCP; FROM [facility];NEURO CONSULT
--- NOTE | 2019-11-29 14:16 | NUR ---
NURSE NOTES: PT ABLE TO AMBULATE WITH STEADY GAIT. NEEDS STANDBY ASSIST FOR FALL PRECAUTIONS. PT AMBULATED AROUND NURSE'S STATION AND UP AND DOWN HALLWAY. PT NOT SOB OR DIZZY. WILL CONTINUE TO MONITOR. RN LEFT MESSAGE AT DR JACKSON'S OFFICE REGARDING PENDING NEURO EVAL.
--- NOTE | 2019-11-29 14:44 | NUR ---
NURSE NOTES: DR Luz Maria TONY MADE AWARE OF VRE RECTUM. NO NEW ORDERS.
--- NOTE | 2019-11-29 14:46 | Infectious Diseases Prog Note ---
Assessment/Plan Assessment/Plan IMPRESSION: Pleural effusion and atelectasis. I doubt the patient has pneumonia. Diabetes mellitus with hyperglycemia, systolic congestive heart failure, history of CVA Hypertension. VRE carrier RECOMMENDATION: Observe off antibiotic. Subjective ROS Limited/Unobtainable: Yes Constitutional: Denies: fever Allergies: Coded Allergies: No Known Allergies (Unverified , 11/26/19) Objective Vital Signs Last 24 Hour Vital Signs Date Time Temp Pulse Resp B/P (MAP) Pulse Ox O2 Delivery O2 Flow Rate FiO2 11/29/19 12:00 98.0 91 17 124/72 (89) 99 11/29/19 09:00 Room Air 11/29/19 08:00 97.9 82 17 123/78 (93) 98 11/29/19 04:00 98.0 99 19 136/80 (98) 95 11/29/19 00:00 97.9 97 19 130/80 (97) 95 11/28/19 20:50 Room Air 11/28/19 20:32 98.1 93 19 144/92 (109) 99 11/28/19 16:00 97.9 84 19 114/72 (86) 97 Height (Feet): 5 Height (Inches): 5.00 Weight (Pounds): 110 General Appearance: no acute distress HEENT: mucous membranes moist Respiratory/Chest: lungs clear Cardiovascular: normal rate Abdomen: soft, non tender Extremities: no edema Neurologic/Psychiatric: other - sleeping Microbiology Date/Time Source Procedure Growth Status 11/26/19 22:40 Nasal Nares MRSA Culture - Final NO METHICILLIN RESISTANT STAPH AUREUS... Complete 11/26/19 22:40 Rectum - Final NO CARBAPENEM-RESISTANT ENTEROBACTERI... Complete 11/26/19 22:40 Rectum VRE Culture - Final Enterococcus Faecium - Vre Complete Laboratory Tests Test 11/29/19 08:10 PTT Mixing Study Pending APTT Patient/Control Mix Pending Mix PTT Incubation Time Pending Mix PTT Normal/Saline 1:1 Immediate Pending Thrombin Time Normal Plasma Pending Current Medications Medications (Trade) Dose Ordered Sig/Abbey Route PRN Reason Start Time Stop Time Status Last Admin Dose Admin Acetaminophen (Tylenol) 650 mg Q4H PRN ORAL Mild Pain/Temp > 100.5 11/27/19 00:15 12/27/19 00:14 Furosemide (Lasix) 20 mg EVERY 12 HOURS ORAL 3/29/20 12:15 12/27/19 12:14 11/29/19 08:06 Lorazepam (Ativan 2mg/ml 1ml) 1 mg Q2H PRN IV Seizure activity only 11/27/19 00:15 12/04/19 00:14 Robbie Samson MD Nov 29, 2019 14:46
[2019-11-29 16:00] VITALS: BP 120/78
--- NOTE | 2019-11-29 17:27 | NUR ---
NURSE NOTES: ORDER FOR EEG NOTED. RN SPOKE TO SHAYNA (PACKAGE DELIVERY ROOM SERVICE RUNNER) [phone] AND MADE AWARE OF NEW ORDER.
--- NOTE | 2019-11-29 19:00 | NUR ---
HAND-OFF: Report given to Suyapa LR RN.
--- NOTE | 2019-11-29 19:30 | Consultation ---
DATE OF CONSULTATION: 11/29/2019 NEUROLOGICAL CONSULTATION CONSULTING PHYSICIAN: Alonzo Vazquez M.D. 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 History cannot really be obtained from the patient. However, she has a history of hypertension and hypertensive heart disease and diabetes. Also has a history of GERD and a previous stroke. The patient was brought in from a nursing facility. The patient was admitted. The chest x-ray reveals bilateral small to moderate pleural effusion with passive atelectasis, retrocardiac atelectasis with or without consolidation or linear interstitial prominence, which could represent interstitial pulmonary edema or low lung volumes. Has left chest ICD. Brain CT scan revealed left frontal parietal encephalomalacia, otherwise is fairly unremarkable. The lesion was old. Laboratory studies revealed borderline anemia with normal platelet count and normal white cell count. Coagulation, her ProTime was 13.3, INR was 1.3, APTT was normal. Urinalysis revealed +2 glucose, +4 protein, +5 urine blood, +1 leukocyte esterase, 2 to 4 white blood cells, and 5 to 10 rbc's. The chemistries revealed a normal sodium. Blood sugar was elevated at 221, now 206. BUN was initially elevated at 22, now 14. Alkaline phosphatase is mildly elevated. Troponins were normal. Total proteins and albumin are low. Lipase was normal. The patient denies any headaches, previous seizures, blackout strokes, memory loss, gait disorder, tremors, shakes, loss of bowel or bladder function, hearing loss, tinnitus, dizzy spells, double vision, dysarthria, or dysphagia. There is no numbness or tingling. There is no family history of neurologic disease. PHYSICAL EXAMINATION: GENERAL: She is a well-developed, thin woman, rather in good spirits, in no acute distress. VITAL SIGNS: Blood pressure is 120/78, temperature is 98.3, pulse is 92, respiratory rate is 18. MENTAL STATUS EXAMINATION: Orientation, she does not know the year. Place, she knows she is in the hospital, did not know the name of the hospital. Person, she is oriented to person. She could not spell world backwards or forwards. CRANIAL NERVE EXAMINATION: CRANIAL NERVE II: Mostly intact to confrontation. CRANIAL NERVES III, IV, AND : There is decreased right palpebral fissure noted. Extraocular motility appeared to be full with saccadic smooth pursuit. CRANIAL NERVE V: Facial and corneal sensation were subjectively intact to fine touch. CRANIAL NERVE VII: Facial strength appeared to be 5/5. CRANIAL NERVE VIII: Auditory acuity was partially intact. CRANIAL NERVES IX AND X: Not examined. CRANIAL NERVE XI: Sternocleidomastoid strength is 5/5. CRANIAL NERVE XII: Tongue protrudes in the midline without fasciculations or atrophy. MUSCLE EXAMINATION: Muscle bulk and tone appeared to be normal. Strength is at least 4+/5 in the upper and lower extremities. There is no pronator drift. There is no asterixis. REFLEXES: +1 in the upper extremities, 0 at the ankles and knees with an indefinite toe sign on the right and downgoing toe on the left side. COORDINATION: Fwxkoc-hwniwv-estd was intact. She either could not or would not do [id number] testing. GAIT AND STATION: She basically had a normal based gait. Romberg was negative. Heel-toe and tandem walk could not be done probably due to lack of comprehension. SENSORY EXAMINATION: Could not be evaluated. IMPRESSION: The patient has a focal seizure secondary to generalization. The proximate cause is unclear. However, the patient has a previous stroke and this is mostly where the seizure came from. The patient was not treated, which is probably okay although probably she has a chance of having another seizure. If she does, she should be treated. The patient also has Alzheimer disease, which is an end-stage Alzheimer disease, can be associated with epilepsy. However, I think the stroke is more likely the cause. We will probably get a serum magnesium on her. There is no evidence of cancer at this time although chest x-ray is abnormal. The only seizure was "right-sided." PLAN: 1. eeg Alonzo Vazquez MD DR: JIMMIE JOB#: [id number] CC: MAGGY
--- NOTE | 2019-11-29 20:00 | NUR ---
NURSE NOTES: Received patient on bed, awake. EEG in progress, explained procedure to patient via medical rock crushing machine operator. IV site intact and patent. Bed in low and locked position, call light in reach. No signs of respiratory distress or pain. Room board updated, will continue to monitor.
--- NOTE | 2019-11-29 20:27 | General Progress Note ---
Assessment/Plan Problem List: (1) Focal seizure ICD Codes: R56.9 - Unspecified convulsions SNOMED: 53079577 (2) Bilateral pleural effusion ICD Codes: J90 - Pleural effusion, not elsewhere classified SNOMED: 098356372 Status: progressing Assessment/Plan: seizure new onset fluid management no fever not hypoxic no cough chf resp insuff r/o pna need diuresis Subjective ROS Limited/Unobtainable: Yes Allergies: Coded Allergies: No Known Allergies (Unverified , 11/26/19) Objective Last 24 Hour Vital Signs Date Time Temp Pulse Resp B/P (MAP) Pulse Ox O2 Delivery O2 Flow Rate FiO2 11/29/19 16:00 98.3 92 18 120/78 (92) 97 11/29/19 12:00 98.0 91 17 124/72 (89) 99 11/29/19 09:00 Room Air 11/29/19 08:00 97.9 82 17 123/78 (93) 98 11/29/19 04:00 98.0 99 19 136/80 (98) 95 11/29/19 00:00 97.9 97 19 130/80 (97) 95 11/28/19 20:50 Room Air 11/28/19 20:32 98.1 93 19 144/92 (109) 99 Intake and Output 11/28/19 11/29/19 19:00 07:00 # Voids 1 Laboratory Tests 11/29/19 08:10: PTT Mixing Study [Pending], APTT Patient/Control Mix [Pending], Mix PTT Incubation Time [Pending], Mix PTT Normal/Saline 1:1 Immediate [Pending], Thrombin Time Normal Plasma [Pending], Magnesium Level 1.5L Height (Feet): 5 Height (Inches): 5.00 Weight (Pounds): 110 Lucrecia Bentley MD Nov 29, 2019 20:27
[2019-11-30] VITALS: BP 136/71
[2019-11-30 04:00] VITALS: BP 125/70
--- NOTE | 2019-11-30 07:17 | Hematology/Onc Progress Note ---
Assessment/Plan Assessment/Plan # Coagulopathy may be related to decrease po intake, is at increased risk of bleeding --> consider to obtain further liver imaging as needed --> vit k and ffp on prn basis --> mixing study ordered # Pleural effusion and atelectasis. I doubt the patient has pneumonia. --> per pulm --> drain as needed # Diabetes mellitus with hyperglycemia, --> per endo eval # Systolic congestive heart failure, --> cards consulted # history of CVA --> with focal seizure --> per neuro # Hypertension. # VRE carrier Appreciate consultation and dw rn Subjective Constitutional: Denies: no symptoms, chills, fever, malaise, weakness, other HEENT: Denies: no symptoms, eye pain, blurred vision, tearing, double vision, ear pain, ear discharge, nose pain, nose congestion, throat pain, throat swelling, mouth pain, mouth swelling, other Respiratory: Denies: no symptoms, cough, shortness of breath, SOB with excertion, SOB at rest, sputum, wheezing, other Gastrointestinal/Abdominal: Denies: no symptoms, abdomen distended, abdominal pain, black stools, tarry stools, blood in stool, constipated, diarrhea, difficulty swallowing, nausea, poor appetite, poor fluid intake, rectal bleeding , vomiting, other Neurologic/Psychiatric: Denies: no symptoms, anxiety, depressed, emotional problems, headache, numbness, paresthesia, pre-existing deficit, seizure, tingling, tremors, weakness, other Endocrine: Denies: no symptoms, excessive sweating, flushing, intolerance to cold, intolerance to heat, increased hunger, increased thirst, increased urine, unexplained weight gain, unexplained weight loss, other Allergies: Coded Allergies: No Known Allergies (Unverified , 11/26/19) All Systems: reviewed and negative except above Subjective 11/29 no bleeding, no chills, ongoing neuro eval, no night sweats Objective Objective Current Medications Medications (Trade) Dose Ordered Sig/Abbey Route PRN Reason Start Time Stop Time Status Last Admin Dose Admin Acetaminophen (Tylenol) 650 mg Q4H PRN ORAL Mild Pain/Temp > 100.5 11/27/19 00:15 12/27/19 00:14 Furosemide (Lasix) 20 mg EVERY 12 HOURS ORAL 11/27/19 12:15 12/27/19 12:14 11/29/19 20:56 Lorazepam (Ativan 2mg/ml 1ml) 1 mg Q2H PRN IV Seizure activity only 11/27/19 00:15 12/04/19 00:14 Last 24 Hour Vital Signs Date Time Temp Pulse Resp B/P (MAP) Pulse Ox O2 Delivery O2 Flow Rate FiO2 11/30/19 04:00 97.8 88 18 125/70 (88) 97 11/30/19 00:00 97.7 85 18 136/71 (92) 97 11/29/19 21:26 Room Air 11/29/19 16:00 98.3 92 18 120/78 (92) 97 11/29/19 12:00 98.0 91 17 124/72 (89) 99 11/29/19 09:00 Room Air 11/29/19 08:00 97.9 82 17 123/78 (93) 98 11/29/19 04:00 98.0 99 19 136/80 (98) 95 11/29/19 00:00 97.9 97 19 130/80 (97) 95 11/28/19 20:50 Room Air 11/28/19 20:32 98.1 93 19 144/92 (109) 99 11/28/19 16:00 97.9 84 19 114/72 (86) 97 11/28/19 12:11 98.0 80 17 115/80 (92) 99 11/28/19 09:00 Room Air 11/28/19 08:22 98.2 83 16 113/78 (90) 98 Intake and Output 11/29/19 11/30/19 18:59 06:59 Intake Total 500 ml Balance 500 ml Intake Oral 500 ml # Voids 5 2 Labs Test 11/28/19 05:50 11/29/19 08:10 Sodium Level 139 MMOL/L (136-145) Potassium Level 4.1 MMOL/L (3.5-5.1) Chloride Level 103 MMOL/L (98-107) Carbon Dioxide Level 29 MMOL/L (21-32) Anion Gap 7 mmol/L (5-15) Blood Urea Nitrogen 14 mg/dL (7-18) Creatinine 0.9 MG/DL (0.55-1.30) Estimat Glomerular Filtration Rate > 60 mL/min (>60) Glucose Level 206 MG/DL (74-106) Calcium Level 8.7 MG/DL (8.5-10.1) Magnesium Level 1.5 MG/DL (1.8-2.4) Height (Feet): 5 Height (Inches): 5.00 Weight (Pounds): 110 Objective gen: nad Pulm: ctab Cv rrr, no mgr Abd soft, nt, nd Ext no cce Stephen Sarmiento MD Nov 30, 2019 07:17
--- NOTE | 2019-11-30 07:31 | NUR ---
HAND-OFF: Report given to DAVID Lopes.
[2019-11-30 08:00] VITALS: BP 112/66
--- NOTE | 2019-11-30 08:44 | Pulmonology Progress Note ---
Assessment/Plan Assessment/Plan IMPRESSION: 1. CHF. 2. ICD. 3. Pleural effusion. 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 Continue low-dose diuresis. Bernabe Mane M.D. Subjective Interval Events: No new events Constitutional: Reports: no symptoms HEENT: Repors: no symptoms Respiratory: Reports: no symptoms Cardiovascular: Reports: no symptoms Gastrointestinal/Abdominal: Reports: no symptoms Allergies: Coded Allergies: No Known Allergies (Unverified , 11/26/19) Objective Last 24 Hour Vital Signs Date Time Temp Pulse Resp B/P (MAP) Pulse Ox O2 Delivery O2 Flow Rate FiO2 11/30/19 08:00 98.4 97 18 112/66 (81) 97 11/30/19 04:00 97.8 88 18 125/70 (88) 97 11/30/19 00:00 97.7 85 18 136/71 (92) 97 11/29/19 21:26 Room Air 11/29/19 16:00 98.3 92 18 120/78 (92) 97 11/29/19 12:00 98.0 91 17 124/72 (89) 99 11/29/19 09:00 Room Air Intake and Output 11/29/19 11/30/19 19:00 07:00 Intake Total 500 ml Balance 500 ml Intake Oral 500 ml # Voids 5 2 General Appearance: no acute distress HEENT: normocephalic Respiratory/Chest: chest wall non-tender Cardiovascular: normal peripheral pulses Abdomen: normal bowel sounds Current Medications Medications (Trade) Dose Ordered Sig/Abbey Route PRN Reason Start Time Stop Time Status Last Admin Dose Admin Acetaminophen (Tylenol) 650 mg Q4H PRN ORAL Mild Pain/Temp > 100.5 11/27/19 00:15 12/27/19 00:14 Furosemide (Lasix) 20 mg EVERY 12 HOURS ORAL 11/27/19 12:15 12/27/19 12:14 11/30/19 08:19 Lorazepam (Ativan 2mg/ml 1ml) 1 mg Q2H PRN IV Seizure activity only 11/27/19 00:15 4/5/20 00:14 Bernabe Mane MD Nov 30, 2019 08:44
--- NOTE | 2019-11-30 10:25 | NUR ---
*-* DISCHARGE PLANNING *-* PATIENT HAS BEEN REFERRED BACK TO: [facility] P: [phone] F; [phone] EMAIL; [email or web address] Addendum: 11/30/19 at 1127 by JEFFREY LANDIN LVN LVN FOLLOW UP CALL MADE TO [facility]. LOAN OFFICER UNAVAILABLE AT THIS TIME. SLOT FLOOR SUPERVISOR NOR DON AVAILABLE. MESSAGE LEFT REQUESTING CALL BACK. Addendum: 11/30/19 at 1153 by JEFFREY LANDIN LVN LVN CALL RECEIVED FROM FRANCIE AT [facility]. CONFIRMED PATIENT ACCEPTED TO RETURN WITH FOLLOWING ROOM ASSIGNMENT 104-A SKILLED BLS AMBULANCE SCHEDULED WITH [facility] (EXT 4383) WITH ETA @ 1330 PM 4E BURLAP WORKER INFORMED AND WILL INFORM DAVID BINGHAM
[2019-11-30 12:00] VITALS: BP 132/87
--- NOTE | 2019-11-30 13:12 | NUR ---
NURSE NOTES: RECEIVED ORDER FROM DR FERGUSON TO D/C MID-LINE CATHETER UPON DISCHARGE AND VRE RECTUM COLONIZED. PT MADE AWARE USING [facility] #[id number]. NO FAMILY OR NEXT OF KIN TO CONTACT. [facility] FOR GR[facility] WATER TECHNICIAN ETA 1430 HRS. RN ATTEMPTED TO CALL [facility] 3 TIMES. [place] WITH NO OPTION FOR VOICEMAIL. RN SPOKE TO ALEJANDRA MURPHY AND MADE AWARE [facility] WITH NO ANSWER. PER COLEEN MURPHY TO SEND PT WHEN AMBULANCE ARRIVES.
--- NOTE | 2019-11-30 13:30 | NUR ---
NURSE NOTES: RN GAVE REPORT TO DAVID DUQUE AT [facility] AT [phone].
--- NOTE | 2019-11-30 15:47 | NUR ---
NURSE NOTES: PT'S MIDLINE CATHETER DISCONTINUED. PT TOLERATED WELL. TIP OF CATHETER INTACT. BELONGINGS CHECKED AT BEDSIDE. NO EARRINGS NOTED. PT WITH ONLY PANTS AND GREEN BLANKET. PT WAS DISCHARGED IN STABLE CONDITION WITH AMBULANCE PERSONNEL.
--- NOTE | 2019-11-30 18:30 | Electroencephalogram ---
DATE OF PROCEDURE: 11/29/2019 REQUESTING PHYSICIAN: Alonzo Vazquez M.D. READING PHYSICIAN: Shawn De Oliveira M.D. DATE OF TRACIN11/29/2019. HISTORY: This EEG was performed on a 69-year-old lady with a history of a prior stroke associated with right-sided weakness, who was noted to have a possible seizure of a focal nature. The details are unavailable to us. The purpose of this EEG was to evaluate the patient for ongoing ictal or interictal phenomena. TECHNICAL NOTE: This EEG was performed on a [employer] with electrodes placed on the scalp according to the International 10-20 system. Dfjok-aw-zwyvn and wbkor-sr-ycl montages were used. The EEG was technically satisfactory and was performed in the awake and drowsy states. OBSERVATIONS: In the best awake state, the background activity consisted of 8.5-9 Hz posteriorly predominant well-developed alpha waveforms, which attenuated on eye opening. Left frontotemporal polymorphic delta activity was seen during wakefulness. Drowsiness was characterized by dissolution of the alpha rhythm and the appearance of slow frequencies in the 5-6 Hz theta range. This was associated with an increase in the amount of left frontotemporal polymorphic delta activity. No epileptiform discharges were seen. IMPRESSION: This is an abnormal EEG characterized by left frontotemporal polymorphic delta activity seen during wakefulness and more so during drowsiness. COMMENT: This study is consistent with focal dysfunction involving the left frontotemporal region. Clinical correlation is recommended. Shawn De Oliveira M.D., M.S.P.H. Clinical Neurophysiologist DR: LORENA JOB#: [id number] [facility]
--- NOTE | 2019-11-30 19:30 | Progress Note ---
DATE: 11/30/2019 SUBJECTIVE: The patient is doing somewhat better. Last night her magnesium was 1.5, which is a little low. The patient should have an EEG today. There are no seizures. PHYSICAL EXAMINATION: VITAL SIGNS: Temperature is 98.4 degrees, respiratory rate is 18, blood pressure is 112/66. MENTAL STATUS: She is alert and awake. Orientation, she knows it is October 2019 and it is Thursday. Place, she knows she is in a hospital. Does not know the name of the hospital. She knows she is in [place]. Person, she is oriented to person. She could not spell "world" in Malay backwards and forwards. She does know her birthday, 1950. CRANIAL NERVE EXAMINATION: Extraocular motility is full. Pupils are 5 mm, round, light reactive. CRANIAL NERVE VII: Facial strength is 5/5. COORDINATION: Lgvban-hwiclf-uyqp is intact. IMPRESSION: The patient is better today. She might have been sundowning last night. She was more confused and was more disoriented. The patient has a left mainly parietal stroke, which is old and it is most likely due to an embolus or intracranial artery MCA stenosis. Aortic embolus is less likely. Apparently, she had a CT angiogram at [facility] which was negative. That is the old stroke is embolic, probably cardiac or aorta. Therefore, unless we can obtain the old 2D echocardiogram or better get a transesophageal echocardiogram, which would visualize the ascending aorta would be the best test. PLAN: 1. Suggest transesophageal echocardiogram or 2D echocardiogram with bubbles if you think it is necessary. 2. Speak to you about this case. Alonzo Vazquez MD DR: ALAINA JOB#: [id number] CC:
--- NOTE | 2019-12-01 08:18 | Discharge Summary ---
Discharge Summary Discharge Summary _ DATE OF ADMISSION: 11/26/2019 DATE OF DISCHARGE: 11/30/2019 DISCHARGED BY: Dr. Bentley REASON FOR ADMISSION: 69 years old female with past medical history of congestive heart failure, hypertension, diabetes mellitus, history of CVA, dementia, presented from the senior care facility with report of right-sided focal seizure activity. Patient had recent hospitalization at [facility] . Patient was unable to provide any history being nonverbal. Upon evaluation patient was tachycardic , blood pressure was elevated 169/102. Laboratory work-up revealed no leukocytosis, hemoglobin 11.9, hematocrit 37.4. Urinalysis revealed +4 protein , +2 glucose, borderline pyuria ,+1 leukocyte esterase and few bacteria. Stable electrolytes. BUN 22, creatinine 1.0. Glucose 221. Troponin 0.013. EKG revealed atrial pacing , no acute changes. Albumin 2.3. Stable LFT and lipase. Chest x-ray demonstrated bilateral small to moderate pleural effusion with possible atelectasis . Left chest ICD. CT of the chest showed no acute intracranial pathology. Left frontoparietal encephalomalacia noted. Patient received Versed and admitted for further management. CONSULTANTS: neurologist Dr. Vazquez pulmonary Dr. Mane ID specialist Dr.Masoud Lepemarty [facility] COURSE: Patient admitted. EEG was abnormal , characterized by left frontal temporal polymorphic delta activity , seen during wakefulness and more during drowsiness. Study was consistent with a focal dysfunction , involving the left frontotemporal region. Per neurologist, patient had a prior left , mainly parietal stroke , which was old and most likely was due to embolism or intracranial artery MCA stenosis. Aortic embolus was less likely. Patient with Eliquis and statin continued. Patient had a CT angiogram at [facility], which was negative. Seizure precautions maintained, no further evidence of seizure activity. Ativan was on board as needed for breakthrough seizures. No need to start anticonvulsant for the first episodes of seizures. Home medication were continued. Antihypertensive regimen optimized to keep blood pressure under control. Patient provided with diuresis with close monitoring of volumes and renal parameters. Prior to discharge BUN from 22 down to 14. Magnesium was replaced. Supplemental oxygen provided and titrated to keep pulse oximetry above 92%. ID specialist recommended to observe patient off antibiotics. No evidence of infection. Blood sugar was managed with sliding scale of insulin. Patient clinically stabilized and was ready for discharge to senior care facility for continuation of care. FINAL DIAGNOSES: Focal seizure, new onset Bilateral pleural effusion CHF ICD History of left parietal stroke DISCHARGE MEDICATIONS: See Medication Reconciliation list. DISCHARGE INSTRUCTIONS: Patient was discharged to the senior care facility. Follow up with medical doctor at the facility. I have been assigned to dictate discharge summary for this account. I was not involved in the patient's management. Soila Reinoso NP Dec 01, 2019 08:18
== END 2019-11-30 15:43 | DRG 101 ==
LOC: EDBD 20:10 → EMR 20:32 → 4E 21:47 → EDBEDREQ 22:39
DX: R56.9 Unspecified convulsions (principal); J98.11 Atelectasis; I50.20 Unspecified systolic (congestive) heart failure; I69.351 Hemiplegia and hemiparesis following cerebral infarction affecting right dominant side; E11.65 Type 2 diabetes mellitus with hyperglycemia; F03.90 Unspecified dementia, unspecified severity, without behavioral disturbance, psychotic disturbance, mood disturbance, and anxiety; K21.9 Gastro-esophageal reflux disease without esophagitis; I11.0 Hypertensive heart disease with heart failure
CPT/HCPCS: 36415; 70450; 71045; 80048; 80053; 81003; 82550; 82962; 83690; 83735; 84484; 85025; 85610; 85730; 87081; 93005; 95819; 96374; 99291; J7030